=== PATIENT | male | born 1965 | race Caucasian/White ===

== ENCOUNTER 2016-09-13 15:00 | Emergency (ER) | payer MEDICARE, OTHER ==
--- NOTE | ~2016-09-13 | CR58 ---
[facility] A Service of [facility] & [facility] RADIOLOGY TEXT RESULTS PATIENT: HELGA WALTER III LOCATION: SED : 61 UNIT #: [id number] AGE: [address]: Tanner Donaldson MD SEX: M ORDER DR: [id number] [address] [address] [id number] E MR#: [id number] Acc #: [id number] NAME: HELGA WALTER III : 1965 SEX: M STUDY DATE/TIME: 09/13/2016 15:26 UNIT: SED ROOM: STUDY DESCRIPTION: CR Cervical Spine 2 or 3 Views Attending Physician: Tanner Donaldson M.D. Ordering Physician: Tanner Donaldson M.D. Primary Care Physician: Shiraz Clemente M.D. MEDICAL IMAGING REPORT This report is preliminary unless electronic signature is present. EXAM Cervical spine series, 09/13/2016 HISTORY Trauma. Fell on deck today 11:30 a.m., hit left side head, neck pain, middle headache, dizzy. FINDINGS AP, lateral, swimmer's and open-mouth odontoid views of the cervical spine are presented. Alignment appears normal. Vertebral body heights and intervertebral disc space heights appear within normal limits. Multilevel anterior osteophyte formations. C1-C2 relationship not adequately visualized on open-mouth odontoid view or AP view for clearance in context of trauma. Odontoid process not adequately visualized on these views for clearance in context of trauma. In the lateral projection, the C1-C2 levels appear within normal limits. Please see subsequent CT examination for further assessment. Prevertebral soft tissues unremarkable. There appear to be carotid arterial calcifications on the right. Consider assessment with carotid ultrasound on an elective basis. Upper lung zones clear. Probable mild cardiac enlargement. Visualized bony thorax unremarkable. Dictated by... Suleman Staton M.D. THIS IS AN ELECTRONICALLY VERIFIED REPORT Suleman Staton M.D. at 09/14/2016 5:24 PM LIAM/tasneem TD: 09/14/2016 04:43 [facility] A Service of [facility] & [facility] RADIOLOGY TEXT RESULTS PATIENT: HELGA WALTER III [id number] [birth year] UNIT #: [id number] AGE: [address]: Tanner Donaldson MD SEX: M ORDER DR: JOB #: [id number] MEDICAL IMAGING REPORT
--- NOTE | ~2016-09-13 | CT52 ---
[facility] A [facility] RADIOLOGY TEXT RESULTS PATIENT: HELGA WALTER III LOCATION: SED : 63 UNIT #: [id number] AGE: [address]: Tanner Donaldson MD SEX: M ORDER DR: [id number] [place] [address] [id number] E MR#: [id number] Acc #: [id number] NAME: HELGA WALTER III : 1965 SEX: M STUDY DATE/TIME: 09/13/2016 15:42 UNIT: SED ROOM: STUDY DESCRIPTION: CT Cervical Spine Wo Cont Attending Physician: Tanner Donaldson M.D. Ordering Physician: Tanner Donaldson M.D. Primary Care Physician: Shiraz Clemente M.D. MEDICAL IMAGING REPORT This report is preliminary unless electronic signature is present. EXAM CT cervical spine, 09/13/2016 INDICATION Fall on a deck. Neck pain. Trauma. TECHNIQUE CT head without contrast. Coronal and sagittal reconstructions were obtained. This CT exam was performed with one or more of the following radiation dose reduction techniques: automatic exposure control, adjustment of mA and/or kV according to patient size, and iterative reconstruction. COMPARISON Cervical spine radiograph dated 09/13/2016. FINDINGS No acute fracture or subluxation of the cervical spine. Vertebral body height and alignment is within normal limits. There are multilevel degenerative changes in the cervical spine consisting of disc space narrowing, osteophyte formation, and facet arthropathy. Prevertebral soft tissues are within normal limits. IMPRESSION 1. No acute traumatic fracture. 2. Degenerative changes of the cervical spine. Dictated by... Simone Morrison M.D. [facility] A [facility] RADIOLOGY TEXT RESULTS PATIENT: HELGA WALTER III LOCATION: SED : 61 UNIT #: [id number] AGE: [address]: Tanner Donaldson MD SEX: M ORDER DR: THIS IS AN ELECTRONICALLY VERIFIED REPORT Simone Morrison M.D. at 09/14/2016 8:20 AM MELONIE/joan TD: 09/14/2016 04:00 JOB #: [id number] MEDICAL IMAGING REPORT
--- NOTE | ~2016-09-13 | CT71 ---
[facility] A [facility] RADIOLOGY TEXT RESULTS PATIENT: HELGA WALTER III LOCATION: SED : 61 UNIT #: [id number] AGE: [address]: Tanner Donaldson MD SEX: M ORDER DR: [id number] [place] [address] [id number] E MR#: [id number] Acc #: [id number] NAME: HELGA WALTER III : 1965 SEX: M STUDY DATE/TIME: 09/13/2016 15:30 UNIT: SED ROOM: STUDY DESCRIPTION: CT Head Wo Contrast Attending Physician: Tanner Donaldson M.D. Ordering Physician: Tanner Donaldson M.D. Primary Care Physician: Shiraz Clemente M.D. MEDICAL IMAGING REPORT This report is preliminary unless electronic signature is present. EXAM CT head, 09/13/2016 INDICATIONS Fall on a deck. Hit the left side of the head. Head and neck pain. Dizziness. TECHNIQUE CT of the head without contrast. This CT exam was performed with one or more of the following radiation dose reduction techniques: Automatic exposure control, adjustment of mA and/or kV according to patient size, and iterative reconstruction. COMPARISON CT head dated 11/17/2015. FINDINGS There is no acute intracranial hemorrhage. No mass effect or midline shift. No acute ischemia. Hallman-white matter differentiation is normal. The ventricles and basilar cisterns are normal. There is a small left mastoid effusion. No acute osseous abnormalities. Visualized paranasal sinuses are clear. IMPRESSION 1. No acute traumatic findings. 2. Small left mastoid effusion. Dictated by... Simone Morrison M.D. [facility] A [facility] RADIOLOGY TEXT RESULTS PATIENT: HELGA WALTER III LOCATION: SED : 61 UNIT #: [id number] AGE: [address]: Tanner Donaldson MD SEX: M ORDER DR: THIS IS AN ELECTRONICALLY VERIFIED REPORT Simone Morrison M.D. at 09/14/2016 8:20 AM MELONIE/tasneem TD: 09/14/2016 03:47 JOB #: [id number] MEDICAL IMAGING REPORT
[~2016-09-13 15:00] MED LIST: ALBUTEROL20 ml INH; AMOXIL500 MG PO; BACTRIM DS TABL1 TA1 PO; BACTRIM DS TABL1 TA2 PO; BACTRIM DS TABL1 TAB PO; BENADRYL25 MG PO; CLEOCIN HCL300 M1 PO; DARVOCET-N 1001 TAB PO; DIABETIC MED; DOLOBID500 MG PO; ELIMITE60 GM TOP; FLAGYL PO; FLEXERIL PO; FLEXERIL10 M1 PO; FLEXERIL10 MG PO; GLUCOPHAGE500 M1 PO; GLUCOPHAGE500 MG PO; GUAIFENESIN200 M1 PO; IBUPROFEN800 MG PO; KEFLEX PO; KEFLEX500 M2 PO; KEFLEX500 MG PO; KETOROLAC 0.5% OD; LORTAB 5/500 TA1 TA1 PO; MEDROL4 MG/DOSE- PO; METFORMIN; METFORMIN HCL500 M1 PO; NAPROXEN500 M1 PO; NO MEDICATIONS; PERMETHRIN60 GM TP; PRED FORTE1 ML OP; PREDNISONE PO; PREDNISONE5 M1 PO; PREDNISONE50 MG PO; PROMETHAZINE D118 ML PO; VICODIN 5/1 TAB 5/50 PO; VICODIN 5/500 T1 TAB PO; VOLTAREN50 MG PO; ZITHROMAX PO; ZOVIRAX400 MG PO
== END 2016-09-13 17:02 | disposition home or self-care (01) ==
LOC: SED 15:00
DX: S09.90XA Unspecified injury of head, initial encounter (principal); E11.9 Type 2 diabetes mellitus without complications; J45.909 Unspecified asthma, uncomplicated; W19.XXXA Unspecified fall, initial encounter; Y92.009 Unspecified place in unspecified non-institutional (private) residence as the place of occurrence of the external cause
CPT/HCPCS: 70450; 72040; 72125; 99284

== ENCOUNTER 2016-11-05 20:03 | Emergency (ER) | payer MEDICARE, OTHER | END 2016-11-05 20:12 | disposition home or self-care (01) | LOC: SED 20:03 | DX: S40.211A Abrasion of right shoulder, initial encounter (principal); L08.9 Local infection of the skin and subcutaneous tissue, unspecified; Z23 Encounter for immunization; J45.909 Unspecified asthma, uncomplicated; F41.9 Anxiety disorder, unspecified; E11.9 Type 2 diabetes mellitus without complications; G40.909 Epilepsy, unspecified, not intractable, without status epilepticus; X58.XXXA Exposure to other specified factors, initial encounter; Y92.9 Unspecified place or not applicable | CPT/HCPCS: 90471; 90715; 99282; 99283 ==

== ENCOUNTER 2017-02-23 11:19 | Emergency (ER) | payer MEDICARE, OTHER ==
--- NOTE | ~2017-02-23 | CR63 ---
[facility]. [facility] A Service of [facility] & [facility] RADIOLOGY TEXT RESULTS PATIENT: HELGA WALTER III LOCATION: SED : 61 UNIT #: [id number] AGE: [address]: BO BABCOCK PA-C SEX: M ORDER DR: [id number] [address] [address] [id number] E MR#: [id number] Acc #: [id number] NAME: HELGA WALTER III : 1965 SEX: M STUDY DATE/TIME: 02/23/2017 11:38 UNIT: SED ROOM: STUDY DESCRIPTION: CR Chest 2 View Attending Physician: Bo Babcock Pa-C Ordering Physician: Bo Babcock Pa-C Primary Care Physician: Shiraz Clemente M.D. MEDICAL IMAGING REPORT This report is preliminary unless electronic signature is present. EXAM Chest, 02/23/2017, [facility]. HISTORY 51-year-old male with unexplained cough x2 months. Patient short of breath with history of high blood pressure. COMPARISON 06/01/2014 FINDINGS Two-view chest demonstrates cardiomegaly and thoracic aortic ectasia. Bilateral lungs are expanded and clear with minimal discoid atelectasis, left base. I see no infiltrates and no effusions. IMPRESSION Cardiomegaly and generalized thoracic aortic ectasia. Stable chest appearance with no acute finding. Dictated by... Priyank Romero M.D. THIS IS AN ELECTRONICALLY VERIFIED REPORT Priyank Romero M.D. at 02/23/2017 3:32 PM Heather TD: 02/23/2017 13:56 JOB #: [id number] MEDICAL IMAGING REPORT Page 1 of 1
== END 2017-02-23 13:14 | disposition home or self-care (01) ==
LOC: SED 11:19
DX: E11.65 Type 2 diabetes mellitus with hyperglycemia (principal); R05 Cough; R06.00 Dyspnea, unspecified; I51.7 Cardiomegaly
CPT/HCPCS: 71020; 82947; 94640; 99285